=== PATIENT | female | born 1980 | race Caucasian/White ===

== ENCOUNTER 2017-10-11 19:14 | Emergency (ER) | payer OTHER ==
--- NOTE | 2017-10-11 20:07 | RAD ---
INDICATION: Left hand injury. TECHNIQUE: 4 views of the left hand were obtained. FINDINGS: The bones are in normal alignment. No fracture is seen. Joint spaces appear maintained. IMPRESSION: NO EVIDENCE FOR FRACTURE.
--- NOTE | 2017-10-11 21:07 | ED ---
Upper Extremity Pain - HPI Summary HPI Summary: 36-year-old female presents with left ring finger injury today. She states she closed car door into her finger. She states she just got a manicure gel yesterday. She states she has pain greatest from DIP to the distal aspect of her finger. She denies any abrasion or laceration. She has limited range of motion at the DIP. She denies any numbness or tingling. She has had carpal tunnel release on this hand. She is right-handed. Denies any other injury. She states that her nail is throbbing. - History of Current Complaint Chief Complaint: EDExtremityUpper Stated Complaint: LT FINGER INJURY Time Seen by Provider: 10/11/17 20:25 Hx Last Menstrual Period: IUD - Allergies/Home Medications Allergies/Adverse Reactions: Allergies Allergy/AdvReac Type Severity Reaction Status Date / Time No Known Allergies Allergy Verified 10/11/17 19:30 PMH/Surg Hx/FS Hx/Imm Hx Endocrine/Hematology History: Denies: Hx Diabetes, Hx Thyroid Disease, Hx Anemia Cardiovascular History: Denies: Hx Hypertension Respiratory History: Denies: Hx Asthma, Hx Chronic Obstructive Pulmonary Disease (COPD) GI History: Denies: Hx Jaundice, Hx Ulcer - Surgical History Surgery Procedure, Year, and Place: 2004 Infectious Disease History: No Infectious Disease History: Denies: Hx Clostridium Difficile, Hx Hepatitis, Hx Human Immunodeficiency Virus (HIV), Hx of Known/Suspected MRSA, Hx Shingles, Hx Tuberculosis, Hx Known/ Suspected VRE, Hx Known/Suspected VRSA, History Other Infectious Disease, Traveled Outside the [place] in Last 30 Days - Family History Known Family History: Negative: Diabetes - Social History Alcohol Use: Occasionally Substance Use Type: Reports: None Substance Use Comment - Amount & Last Used: Pt denies Smoking Status (MU): Never Smoked Tobacco Review of Systems Negative: Fever Negative: Chest Pain Negative: Shortness Of Breath Positive: Edema - left index finger Positive: Bruising - left nail index All Other Systems Reviewed And Are Negative: Yes Physical Exam Triage Information Reviewed: Yes Vital Signs On Initial Exam: Initial Vitals Temp Pulse Resp BP Pulse Ox 97.9 F 74 18 130/91 99 10/11/17 19:27 10/11/17 19:27 10/11/17 19:27 10/11/17 19:27 10/11/17 19:27 Vital Signs Reviewed: Yes Appearance: Positive: Well-Appearing Skin: Positive: Warm, Dry, Other - red nail togolese on left index finger with brusing seen under nail at cuticle Head/Face: Positive: Normal Head/Face Inspection Eyes: Positive: Normal, Conjunctiva Clear Respiratory/Lung Sounds: Positive: Clear to Auscultation, Breath Sounds Present Cardiovascular: Positive: Normal, RRR Musculoskeletal: Positive: Limited @ - DIP left index, Edema Left - index at DIP and distal phalanx, Other - good pulses, sensation grossly intact Neurological: Positive: Normal Psychiatric: Positive: Normal Diagnostics - Vital Signs Vital Signs Temp Pulse Resp BP Pulse Ox 10/11/17 19:27 97.9 F 74 18 130/91 99 - Laboratory Lab Statement: Any lab studies that have been ordered have been reviewed, and results considered in the medical decision making process. - Radiology hand Xray Interpretation: No Acute Changes Radiology Interpretation Completed By: Radiologist Course/Dx - Course Course Of Treatment: 36-year-old female presents with left ring finger injury today. She states she closed car door into her finger. She states she just got a manicure gel yesterday. She states she has pain greatest from DIP to the distal aspect of her finger. She denies any abrasion or laceration. She has limited range of motion at the DIP. She denies any numbness or tingling. She has had carpal tunnel release on this hand. She is right-handed. Denies any other injury. On exam has tenderness and edema of the left index finger at the DIP. She has a sublingual hematoma but has gel nail togolese over. Discussed with patient due to the nail togolese and unable to remove the nail togolese here will have patient go home and remove it on own as do not want to cause an infection. Patient can return and can do nail trephination at a later point. X-ray is normal. Placed in finger splint and will have periods. Patient understands and agrees with plan. - Diagnoses Differential Diagnosis/HQI/PQRI: Positive: Contusion, Fracture (Closed), Hematoma Provider Diagnoses: Crushing injury of left index finger, Subungual hematoma of digit of hand Discharge - Discharge Plan Condition: Good Disposition: HOME Patient Education Materials: Subungual Hematoma (ED), Crush Injury (ED) Referrals: Nina Chandler MD [Primary Care Provider] - Additional Instructions: Keep finger in splint Place ice on area, elevate Take tyenlol or ibuprofen for pain every 6 hours If get nail togolese off can return to ED to have nail trephination preformed. Return to ED if develop any new or worsening symptoms
[2017-10-11 21:28] VITALS: BP 112/78
== END 2017-10-11 21:27 | disposition home or self-care (01) ==
LOC: ED 19:14
DX: S67.195A Crushing injury of left ring finger, initial encounter (principal); S60.142A Contusion of left ring finger with damage to nail, initial encounter; W23.0XXA Caught, crushed, jammed, or pinched between moving objects, initial encounter; Y92.9 Unspecified place or not applicable
CPT/HCPCS: 99281

== ENCOUNTER 2017-12-07 20:39 | Emergency (ER) | payer OTHER ==
--- NOTE | 2017-12-07 21:22 | RAD ---
INDICATION: Left index finger after shutting finger in a car door 6 weeks or a linear COMPARISON: Hand radiograph October 11, 2017 TECHNIQUE: 3 views of the left index finger were obtained. FINDINGS: The bones are normal alignment. Joint spaces appear maintained. No fracture is seen. IMPRESSION: NO EVIDENCE FOR FRACTURE, IF THE PATIENT'S SYMPTOMS PERSIST RECOMMEND FOLLOW-UP IMAGING.
--- NOTE | 2017-12-07 21:26 | ED ---
Upper Extremity Pain - HPI Summary HPI Summary: 37 female presents ED with complaints of left index finger pain since her injury that occurred a month ago. She caught her finger in between a car door and has since had issues. The Tinel's falling off and become very uncomfortable. Had a subungual hematoma however did not have it drained. And now is suffering from nail avulsion. He had a cough on multiple things since then he has a throbbing annoying pain. She is unable to type at work due to the pain. States she has tried to rip now off on her own however was unsuccessful. No other complaints at this time. No past medical history. - History of Current Complaint Hx Obtained From: Patient Hx Last Menstrual Period: IUD Mechanism Of Injury: Other - Smashing car door a month ago Onset/Duration: Started Weeks Ago, Traumatic, Still Present Timing: Constant Severity Initially: Moderate Severity Currently: Moderate Pain Location: Finger - Left index fingernail Character: Throbbing Aggravating Factor(s): Other - Touch Alleviating Factor(s): Nothing, Rest Related History: Dominant Hand Right <Nidhi Ricks - Last Filed: 12/07/17 22:00> <Emigdio Monterroso - Last Filed: 12/08/17 03:09> - History of Current Complaint Chief Complaint: EDExtremityUpper Stated Complaint: LEFT FINGER INJURY - Allergies/Home Medications Allergies/Adverse Reactions: Allergies Allergy/AdvReac Type Severity Reaction Status Date / Time No Known Allergies Allergy Verified 12/07/17 20:46 PMH/Surg Hx/FS Hx/Imm Hx Endocrine/Hematology History: Denies: Hx Diabetes, Hx Thyroid Disease, Hx Anemia Cardiovascular History: Denies: Hx Hypertension Respiratory History: Denies: Hx Asthma, Hx Chronic Obstructive Pulmonary Disease (COPD) GI History: Denies: Hx Jaundice, Hx Ulcer - Surgical History Surgery Procedure, Year, and Place: 2004 - Immunization History Immunizations Up to Date: Yes Infectious Disease History: No Infectious Disease History: Denies: Hx Clostridium Difficile, Hx Hepatitis, Hx Human Immunodeficiency Virus (HIV), Hx of Known/Suspected MRSA, Hx Shingles, Hx Tuberculosis, Hx Known/ Suspected VRE, Hx Known/Suspected VRSA, History Other Infectious Disease, Traveled Outside the [place] in Last 30 Days - Family History Known Family History: Negative: Diabetes - Social History Alcohol Use: Occasionally Substance Use Type: Reports: None Substance Use Comment - Amount & Last Used: Pt denies Smoking Status (MU): Never Smoked Tobacco <Nidhi Ricks - Last Filed: 12/07/17 22:00> Review of Systems Constitutional: Negative Cardiovascular: Negative Respiratory: Negative Positive: Myalgia - left index finger Positive: Other - now falling off, index finger pain Neurological: Negative All Other Systems Reviewed And Are Negative: Yes <Nidhi Ricks - Last Filed: 12/07/17 22:00> Physical Exam Triage Information Reviewed: Yes Vital Signs On Initial Exam: Initial Vitals Temp Pulse Resp BP Pulse Ox 97.6 F 84 18 100/74 99 12/07/17 20:43 12/07/17 20:43 12/07/17 20:43 12/07/17 20:43 12/07/17 20:43 Vital Signs Reviewed: Yes Appearance: Positive: Well-Appearing, Well-Nourished, Pain Distress - Mild to moderate with palpation or movement left index fingernail Skin: Positive: Warm, Skin Color Reflects Adequate Perfusion, Dry, Other - Subungual hematoma noted last index fingernail however now is partially avulsed at cuticle. Negative: Soft, Cyanosis @, Pale Head/Face: Positive: Normal Head/Face Inspection Neck: Positive: Supple Respiratory/Lung Sounds: Positive: Clear to Auscultation, Breath Sounds Present. Negative: Rales, Rhonchi, Wheezes Cardiovascular: Positive: Normal, RRR, Pulses are Symmetrical in both Upper and Lower Extremities. Negative: Murmur, Rub Musculoskeletal: Positive: Normal, Strength/ROM Intact, Other - No crepitus step -off or other signs of deformity. Negative: Limited @, Interruption @, Pain @ Neurological: Positive: Normal, Sensory/Motor Intact, Alert, Oriented to Person Place, Time <Dai Rickssa - Last Filed: 12/07/17 22:00> Vital Signs On Initial Exam: Initial Vitals Temp Pulse Resp BP Pulse Ox 97.6 F 84 18 100/74 99 12/07/17 20:43 12/07/17 20:43 12/07/17 20:43 12/07/17 20:43 12/07/17 20:43 <Emigdio Monterroso - Last Filed: 12/08/17 03:09> Diagnostics - Vital Signs Vital Signs Temp Pulse Resp BP Pulse Ox 12/07/17 20:43 97.6 F 84 18 100/74 99 - Radiology index finger, left Xray Interpretation: No Acute Changes - NO EVIDENCE FOR FRACTURE, IF THE PATIENT 'S SYMPTOMS PERSIST RECOMMEND FOLLOW-UP IMAGING. Radiology Interpretation Completed By: Radiologist <Nidhi Ricks - Last Filed: 12/07/17 22:00> - Vital Signs Vital Signs Temp Pulse Resp BP Pulse Ox 12/07/17 22:05 97.9 F 76 18 136/87 100 12/07/17 20:43 97.6 F 84 18 100/74 99 <Emigdio Monterroso - Last Filed: 12/08/17 03:09> Course/Dx - Course Course Of Treatment: X-ray obtained and negative. Dr. Monterroso also evaluated patient. Patient's fingernail was removed without complication. Patient's nailbed was dressed using Xeroform, Kerlix and Coban. Continue warm soaks at home. Keep clean and dry. Keep covered as directed. Follow-up with PCP. Aware worsening signs and symptoms watch out for. No other concerns at this time. Encourage ibuprofen for any pain - Diagnoses Differential Diagnosis/HQI/PQRI: Positive: Other - Now avulsion, nail removal, subungual hematoma <Nidhi Ricks - Last Filed: 12/07/17 22:00> - Course Assessment/Plan: I supervised the PA and I performed a history and physical on this patient. I performed the procedure on the patient. Hx: Remote Injury to nail, now is coming loose, getting caught on things. PE: Nail plate is avulsed at the matrix/prox nail fold. Dried subungual hematoma. Plan: I removed the nail bluntly. Procedure: Nail plate removal. The nail was grasped bluntly and gently pryed from the nail bed. No bleeding. Nail removed intact. Reynaldo well, no complications. <Emigdio Monterroso - Last Filed: 12/08/17 03:09> - Diagnoses Provider Diagnoses: Subungual hematoma, Nail avulsion Discharge - Sign-Out/Discharge Documenting (check all that apply): Discharge - Billing Disposition and Condition Condition: GOOD Disposition: HOME <Nidhi Ricks - Last Filed: 12/07/17 22:00> - Billing Disposition and Condition Condition: GOOD Disposition: HOME <KrissEmigdio - Last Filed: 12/08/17 03:09> - Discharge Plan Condition: Good Disposition: HOME Patient Education Materials: Subungual Hematoma (ED), Nail Removal (ED) Referrals: Nina Chandler MD [Primary Care Provider] - Additional Instructions: Keep nail covered. Keep clean and dry. Multiple soaks daily. Redress with Xeroform as directed. Follow-up with PCP. Any new or worsening symptoms such as signs of infection please seek medical attention
[2017-12-07 22:06] VITALS: BP 136/87
== END 2017-12-07 22:06 | disposition home or self-care (01) ==
LOC: ED 20:39
DX: S61.301A Unspecified open wound of left index finger with damage to nail, initial encounter (principal); S60.022A Contusion of left index finger without damage to nail, initial encounter; W23.0XXA Caught, crushed, jammed, or pinched between moving objects, initial encounter; Y92.9 Unspecified place or not applicable
CPT/HCPCS: 73140; 99281

== ENCOUNTER 2017-12-26 19:18 | Emergency (ER) | payer SELFPAY ==
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
[2017-12-26 21:08] VITALS: BP 133/84
== END 2017-12-26 21:07 | disposition home or self-care (01) ==
LOC: ED 19:18
DX: M79.642 Pain in left hand (principal); M25.512 Pain in left shoulder; V89.2XXA Person injured in unspecified motor-vehicle accident, traffic, initial encounter; Y92.9 Unspecified place or not applicable
CPT/HCPCS: 99282

== ENCOUNTER 2019-08-04 11:10 | Emergency (ER) | payer BC, OTHER ==
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
[2019-08-04 12:33] VITALS: BP 126/97
== END 2019-08-04 12:21 | disposition home or self-care (01) ==
LOC: ED 11:10
DX: M25.511 Pain in right shoulder (principal)
CPT/HCPCS: 99282